=== PATIENT | female | born 1930 | race Caucasian/White ===

== ENCOUNTER 2019-12-31 22:36 | Inpatient (IN) | payer MEDICARE, OTHER ==
[2019-12-31 22:55] VITALS: BMI 25.8
[2019-12-31] MEDS ORDERED: Morphine 4 MG/ML VIAL SLOW IVP PRN (23:16)
[2019-12-31] MEDS ORDERED: hydrALAZINE 20 MG/ML VIAL SLOW IVP PRN (23:16)
[2019-12-31] MEDS ORDERED: Ondansetron ODT 4 MG TAB PO PRN (23:16)
[2019-12-31] MEDS ORDERED: Dextrose 50% Abboject 50 ML SYRINGE SLOW IVP PRN (23:16)
[2019-12-31] MEDS ORDERED: Morphine 2 MG/ML SYRINGE SLOW IVP PRN (23:16)
[2019-12-31] MEDS ORDERED: Ondansetron PF 4 MG/2 ML Vial IVP PRN (23:16)
[2019-12-31] MEDS ORDERED: Dextrose 5% in Water 1,000 ML IV PRN (23:16)
[2019-12-31] MEDS ORDERED: Acetaminophen 500 MG TAB PO SCH (23:59)
[2020-01-01] MEDS: Cyclobenzaprine 10 MG TAB PO PRN (00:05)
[2020-01-01] MEDS: Acetaminophen 325 MG TAB PO SCH ×4 (00:34→17:07)
--- NOTE | 2020-01-01 00:43 | HP ---
ATTENDING SURGEON: Dr. Salazar. CONSULTATIONS: Orthopedics, Dr. Rosales. HISTORY OF PRESENT ILLNESS: The patient is an 89-year-old woman, who was brought here from [facility] after suffering a ground level fall when she sustained a right hip fracture. Due to her advanced age and comorbidity, the orthopedic surgeon there felt that the patient would be best served by transferring to higher level. Dr. Salazar was contacted and agreed to the transfer. The patient was brought to our facility. The patient denied any loss of consciousness or syncopal episodes. She just reports missing a step and falling onto her right hip. ALLERGIES: PENICILLIN. CURRENT MEDICATIONS: Lisinopril. PAST MEDICAL HISTORY: Hypertension. PAST SURGICAL HISTORY: Breast lumpectomy x2. SOCIAL HISTORY: The patient denies drug, tobacco, or alcohol use. The patient lives in the [place] area. Of note, the patient had just attended her 's this day. REVIEW OF SYSTEMS: A 10-point review of systems is negative as otherwise stated. PHYSICAL EXAMINATION: VITAL SIGNS: Blood pressure 150/75, heart rate 78, respirations 20, oxygen saturation 95% on room air, and temperature is 98.6. GENERAL: The patient is resting comfortably in bed. She is awake, alert, conversant, and appropriate. [place] Coma Scale is 15. HEENT: Head is normocephalic and atraumatic. Eyes, extraocular motion intact. PERRLA bilaterally. Ears are atraumatic without discharge. Nose is atraumatic without discharge. Oropharynx is clear. NECK: Nontender. Trachea is midline. No JVD. CHEST: Clear to auscultation with good inspiratory and expiratory effort. HEART: Regular rate and rhythm. ABDOMEN: Soft, flat, and nontender with active bowel sounds. Pelvis is stable with tenderness to palpation to the right hip consistent with her fracture. EXTREMITIES: Neurovascularly intact x4. BACK: Atraumatic and nontender. LABORATORY FINDINGS: White blood cell count 8.4, hemoglobin 13.2, hematocrit 39.1, and platelets 235. Sodium 139, potassium 3.4, chloride 101, CO2 of 31, BUN 31, creatinine 1.21, and glucose 110. LFTs are unremarkable. Urinalysis positive bacteria and WBC's. RADIOGRAPHIC FINDINGS: Views of the right femur show comminuted right intertrochanteric hip fracture with minimal displacement. Views of the right hip again show a comminuted minimally displaced right intertrochanteric hip fracture. ASSESSMENT AND PLAN: 1. Status post ground level fall. 2. Right intertrochanteric hip fracture. 3. Acute pain secondary to above. 4. History of hypertension. 5. Urinary tract infection, present on admission. Plan will be to admit the patient to the surgical floor. She was a direct admission. We will do pulmonary toilet, gastritis, and mechanical VTE prophylaxis; make her n.p.o. after midnight; pain control; and postoperatively, begin physical and occupational therapy and discuss placement at that time. Patient was started on Macrobid for her urinary tract infection. Dr. Rosales was made aware of this patient at the time of transfer. Job ID: [id number] [facility]
[2020-01-01 00:45] LABS: Bacteria/HPF 1+ HPF (None Seen); Bilirubin Negative (Negative); Blood, Urine 3+ (Negative); Clarity Turbid (Clear); Glucose, Urine (Dipstick) Normal (Negative); Leukocyte 500 Leu/uL (Negative); Nitrite Negative (Negative); Protein, Urine (Dipstick) Negative (Neg-Trace); RBC/HPF Greater than 50 HPF (0-3); Squamous Epithelial 0-3 HPF (0-3); Urobilinogen Normal mg/dL (Less than 2); WBC/HPF Greater than 50 HPF (0-3)
[2020-01-01 00:46] LABS: Urine Culture Reflex Yes Yes
[2020-01-01] MEDS ORDERED: Nitrofurantoin Monohyd/M-Cryst 100 MG CAP PO SCH (01:00)
[2020-01-01] MEDS: Sodium Chloride 0.9% 1,000 ML IV SCH ×2 (05:05→08:16)
[2020-01-01] MEDS: Ibuprofen 800 MG TAB PO SCH ×3 (05:06→21:00)
[2020-01-01 05:18] LABS: #Eosinphils 0.1 thou/uL (0.0-0.7); #Lymphocytes 1.2 thou/uL (1.20-3.40); #Monocytes 0.7 thou/uL (0.11-0.59); #Neutrophils 4.7 thou/uL (1.40-6.50); %Basophils 0.4 % (0.0-1.0); %Eosinophils 1.3 % (0.0-10.0); %Lymphocytes 17.5 % (21.0-51.0); %Monocytes 10.2 % (0.0-10.0); %Neutrophils 70.6 % (42.0-75.0); Hemoglobin 11.9 g/dL (12.0-16.0); Mean Corpuscular HGB CONC 32.8 g/dL (32.0-36.0); Mean Corpuscular Hemoglobin 29.9 pg (27.0-31.0); Mean Corpuscular Volume 91.1 fL (78.0-98.0); Mean Platelet Volume 7.3 fL (7.4-10.4); Platelet Count 177 thou/uL (130-400); RBC Distribution Width 11.7 % (11.5-14.5); Red Blood Cell (RBC) Count 3.98 mill/uL (4.20-5.40); White Blood Cell (WBC) Count 6.7 thou/uL (4.8-10.8)
[2020-01-01 05:19] LABS: PTT 30.2 SEC (22.9-36.1); Prothrombin Time 13.6 sec (12.0-14.7)
[2020-01-01 05:33] LABS: Anion Gap 14 mmol/L (10-20); BUN (Urea Nitrogen) 27 mg/dL (9.8-20.1); Calc. Creatinine Clearance 47 mL/min (70-130); Calcium 8.6 mg/dL (7.8-10.44); Carbon Dioxide 25 mmol/L (23-31); Chloride 102 mmol/L (98-107); Estimated GFR-MDRD 54; Glucose 108 mg/dL (83-110); Magnesium 1.7 mg/dL (1.6-2.6); Phosphorus 3.7 mg/dL (2.3-4.7); Potassium 3.3 mmol/L (3.5-5.1); Sodium 138 mmol/L (136-145)
[2020-01-01] MEDS ORDERED: Magnesium Sulfate 3 GM in Sodium Chloride 0.9% 250 ML 250 ML IVPB SCH (06:00)
[2020-01-01] MEDS ORDERED: Potassium Phosphate 30 MMOL in Sodium Chloride 0.9% 250 ML 250 ML IVPB SCH (06:00)
--- NOTE | 2020-01-01 07:36 | RAD ---
RIGHT HIP 2 VIEWS: HISTORY: Fall. Right hip fracture. FINDINGS/IMPRESSION: There is a mildly displaced intratrochanteric fracture involving the right proximal femur. POS: GIANCARLOA
[2020-01-01] MEDS: Nitrofurantoin Monohyd/M-Cryst 100 MG CAP PO SCH ×2 (08:16→21:00)
[2020-01-01] MEDS: Lisinopril/Hydrochlorothiazide 20/25 mg Tablet PO SCH (08:17)
--- NOTE | 2020-01-01 08:41 | CON ---
DATE OF CONSULTATION: 01/01/2020 REQUESTING PHYSICIAN: Dio Salazar MD CONSULTING PHYSICIAN: Conner Caballero MD REASON FOR CONSULTATION: Right hip intertrochanteric fracture. BRIEF CLINICAL HISTORY: Shobha is an 89-year-old female, who was admitted by the Trauma Team after transferring from [facility]. Apparently, she suffered a ground level fall at home yesterday evening, but she remembers the events before, during, and after. She had essentially lost her balance in her driveway, and lives independently otherwise with her now . She attended his this same day, yesterday, unfortunately. Plain radiographs obtained demonstrated three part intertrochanteric right hip fracture. PAST MEDICAL HISTORY: Hypertension. PAST SURGICAL HISTORY: Lumpectomy x2. MEDICATIONS: Lisinopril. ALLERGIES: PENICILLIN. DENIES ANY CONTACT ALLERGIES. SOCIAL HISTORY: She is a . She denies any ethanol, tobacco, illicit drug abuse. [place] REVIEW OF SYSTEMS: She denies any fever, chills, nausea, vomiting, chest pain, dyspnea on exertion, shortness of breath, swelling of extremities. She is in her active state of health, which is quite vigorous and independent living, and she took care of her for many years, and otherwise has no significant comorbidities. PHYSICAL EXAMINATION: VITAL SIGNS: Temperature 98.7, pulse 79, respiratory rate 16, O2 saturation on room air 95%, blood pressure 150/75. GENERAL: She is alert and oriented to person, place, time, and situation. Responsive and appropriate with examiner. Grossly nonfocal and very intelligent and conversive. EXTREMITIES: Visual inspection of the right lower extremity demonstrates shortening and external rotation of the right lower extremity relative to the left. She is neurovascularly intact and pain is elicited with just palpation along the inguinal ligament and inferior to this along the lower extremity. Range of motion is not assessed due to known underlying fracture. LABORATORY DATA: Hemoglobin 11.9, hematocrit 36.3, white blood cell count 6.7. BUN 27, creatinine 0.97. Otherwise, other chemistry within normal limits. IMAGING STUDIES: Three-part right hip fracture noted on the AP and lateral of the right hip. IMPRESSION: 1. Displaced varus angulated right hip three-part intertrochanteric fracture with shortening. 2. Hypertension. PLAN: The risks, benefits, options, alternatives, and rationale for proceeding with the right hip short trochanteric nail fixation has been explained in great detail. The patient is ready to proceed. All questions were answered. No guarantee of outcome stated or implied. Please see orders. Job ID: [id number]
[2020-01-01] MEDS ORDERED: Famotidine 20 MG TAB PO SCH (09:00)
[2020-01-01] MEDS ORDERED: Clindamycin/D5W 900 MG in Premix Bag 1 BAG IVPB SCH (10:00)
[2020-01-01] MEDS ORDERED: Lidocaine 1% PF 5 ML VIAL ONE (12:05)
[2020-01-01] MEDS ORDERED: Ondansetron PF 4 MG/2 ML Vial ONE (12:05)
[2020-01-01] MEDS ORDERED: Dexamethasone 20 MG/5 ML VIAL ONE (12:05)
[2020-01-01] MEDS ORDERED: Rocuronium Bromide 10 MG/ML (10ML VIAL) ONE (12:05)
[2020-01-01] MEDS ORDERED: Glycopyrrolate 0.2 MG/ML 5 ML SYRINGE ONE (12:05)
[2020-01-01] MEDS ORDERED: PROPOFOL 200 MG/20 ML VIAL ONE (12:05)
[2020-01-01] MEDS ORDERED: Clindamycin/D5W 900 mg/50 ml Premix Bag ONE (13:07)
--- NOTE | 2020-01-01 13:10 | CON ---
DATE OF CONSULTATION: 01/01/2020 HISTORY OF PRESENT ILLNESS: Ms. Lomeli is a pleasant 89-year-old female, her recently . At the , the patient had a ground level fall sustaining a fracture of the right hip. She has been admitted by Trauma, seen by my PA, Trevor Waldron, see all for further history. The patient otherwise resting comfortably in bed. PHYSICAL EXAMINATION: VITAL SIGNS: Stable. GENERAL: No acute distress. EXTREMITIES: Right lower extremity externally rotated. Neurovascularly intact. DIAGNOSTIC DATA: Radiographs show an intertrochanteric hip fracture, right. IMPRESSION: Right intertrochanteric hip fracture. ASSESSMENT AND PLAN: I discussed with the patient that she would need cephalomedullary nailing of her right hip. I discussed the risks and benefits of surgery, pain, scar, bleeding, infection, damage to vital structures, decreased range of motion, mortality of 38%, risk of blood clot, and need for about 12 weeks to heal. I discussed she would likely have a little bit of a limp postoperatively. The patient understood these risks and benefits, taken back to the operative suite today for surgery. Job ID: [id number] [facility]
[2020-01-01] MEDS ORDERED: Fentanyl 100 MCG/2 ML VIAL ONE (13:14)
[2020-01-01] MEDS ORDERED: Ondansetron HCl/PF 4 MG/2 ML Vial IVP PRN (15:33)
[2020-01-01] MEDS ORDERED: Promethazine HCl 25 MG/ML VIAL SLOW IVP PRN (15:33)
[2020-01-01] MEDS ORDERED: Promethazine HCl 25 MG/ML VIAL IM PRN (15:33)
--- NOTE | 2020-01-01 15:33 | RAD ---
Radiograph right hip 2 views: DATE: 01/01/2020 2:05 PM HISTORY: 89-year-old female status post acute traumatic fracture of intertrochanteric portion of right proxima l femur. COMPARISON: 01/01/2020 4:55 AM FINDINGS: 3 fluoroscopic spot images obtained with C-arm in the OR. The intertrochanteric fracture has been red uced. Alignment and angulation is anatomical. Santiago's type dynamic compression screw has been placed. Satisfactory position of hardware. IMPRESSION: Interval reduction and fixation of acute, traumatic, displaced intertrochanteric right proximal femor al fracture with Santiago's type dynamic compression screw.
--- NOTE | 2020-01-01 16:45 | PRG ---
DATE OF SERVICE: 01/01/2020 SUBJECTIVE: Ms. Lomeli is an 89-year-old female, status post ground level fall. She sustained right hip fracture. The patient was admitted for pain control. The patient will be going to the operation room today with Dr. Rosales for right hip fracture fixation. The patient reports pain is well controlled. She tolerated her regular diet yesterday. She has been put on n.p.o. at midnight. Vital sign is stable. The patient urine is adequate. OBJECTIVE: GENERAL: Currently patient lying in bed comfortable with no acute respiratory distress. VITAL SIGNS: Temperature 98.2, heart rate 66, respiratory rate 16, O2 saturation 94% on room air, blood pressure 100/55. LUNGS: Clear bilaterally. HEART: Regular rate and rhythm. ABDOMEN: Soft, nondistended. EXTREMITIES: Neurovascularly intact x4. NEUROLOGIC: No focal neurologic deficits. ASSESSMENT: 1. Status post ground level fall. 2. Right intertrochanteric femur fracture. 3. Urinary tract infection on admission. 4. History of hypertension. PLAN: The patient will go to the OR today. Continue supportive care. Continue pain control. Continue pulmonary toilet, gastritis prophylaxis. Postop, the patient will need physical therapy and occupational therapy. Anticipate placement in rehabilitation facility. The patient was seen with Dr. Torres on round this morning. Job ID: [id number]
[2020-01-01] MEDS: Clindamycin/D5W 900 MG in Premix Bag 1 BAG IVPB SCH (21:01)
[2020-01-02] MEDS: Acetaminophen 325 MG TAB PO SCH ×5 (00:37→23:41)
--- NOTE | 2020-01-02 03:29 | PRG ---
DATE OF SERVICE: 01/02/2020 SUBJECTIVE: The patient remains on the surgical floor, she is hospital day 2, postoperative day 0, status post ground level fall when she sustained a right intertrochanteric hip fracture. Today, she underwent ORIF of the same, which she tolerated well. Since returning to the surgical floor, she has not worked with therapy yet today. She is tolerating a diet. She confirms that her pain is controlled. PHYSICAL EXAMINATION: VITAL SIGNS: Stable. The patient is afebrile. GENERAL: The patient is resting comfortably in bed. She is awake, alert, conversant, and appropriate. HEENT: Unremarkable. LUNGS: Clear to auscultation bilaterally with good inspiratory and expiratory effort. HEART: Regular rate and rhythm. ABDOMEN: Soft, nontender, with hypoactive bowel sounds. EXTREMITIES: Neurovascularly intact x4. Postop dressing is clean, dry, and intact. ASSESSMENT: 1. Status post ground level fall. 2. Status post open reduction and internal fixation of right intertrochanteric hip fracture. 3. History of hypertension. 4. Urinary tract infection, present on admission, currently under treatment and awaiting microbiology results. PLAN: Plan will be to continue supportive care. Encourage physical and occupational therapy and discuss placement. Job ID: [id number]
[2020-01-02] MEDS: Clindamycin/D5W 900 MG in Premix Bag 1 BAG IVPB SCH (05:36)
[2020-01-02] MEDS: Ibuprofen 800 MG TAB PO SCH ×3 (05:36→22:16)
[2020-01-02] MEDS: Nitrofurantoin Monohyd/M-Cryst 100 MG CAP PO SCH ×2 (08:06→20:20)
[2020-01-02] MEDS: Lisinopril/Hydrochlorothiazide 20/25 mg Tablet PO SCH (08:06)
[2020-01-02] MEDS: Famotidine 20 MG TAB PO SCH (08:06)
[2020-01-02 08:19] LABS: #Lymphocytes 0.5 thou/uL (1.20-3.40); #Monocytes 0.7 thou/uL (0.11-0.59); #Neutrophils 6.8 thou/uL (1.40-6.50); %Basophils 0.4 % (0.0-1.0); %Eosinophils 0.3 % (0.0-10.0); %Lymphocytes 6.7 % (21.0-51.0); %Monocytes 8.9 % (0.0-10.0); %Neutrophils 83.7 % (42.0-75.0); Hemoglobin 11.7 g/dL (12.0-16.0); Mean Corpuscular HGB CONC 32.7 g/dL (32.0-36.0); Mean Corpuscular Volume 91.9 fL (78.0-98.0); Mean Platelet Volume 7.3 fL (7.4-10.4); Platelet Count 159 thou/uL (130-400); RBC Distribution Width 11.8 % (11.5-14.5); White Blood Cell (WBC) Count 8.1 thou/uL (4.8-10.8)
[2020-01-02 08:27] LABS: Anion Gap 14 mmol/L (10-20); BUN (Urea Nitrogen) 26 mg/dL (9.8-20.1); Calc. Creatinine Clearance 45 mL/min (70-130); Calcium 8.2 mg/dL (7.8-10.44); Carbon Dioxide 25 mmol/L (23-31); Chloride 102 mmol/L (98-107); Estimated GFR-MDRD 52; Glucose 114 mg/dL (83-110); Magnesium 2.1 mg/dL (1.6-2.6); Phosphorus 4.1 mg/dL (2.3-4.7); Potassium 4.2 mmol/L (3.5-5.1); Sodium 137 mmol/L (136-145)
[2020-01-02] MEDS: traMADol HCl 50 MG TAB PO PRN (13:18)
--- NOTE | 2020-01-02 15:53 | PRG ---
DATE OF SERVICE: 01/02/2020 SUBJECTIVE: Ms. Lomeli is an 89-year-old female, status post ground level fall. She sustained right hip fracture. She underwent ORIF of right hip fracture with Dr. Rosales yesterday. The patient tolerated the procedure well. She tolerated with her regular diet. Her vital signs stayed stable. Her urine is adequate. She developed no fever or shortness of breath. Her spirometry is 1500. OBJECTIVE: GENERAL: Currently, the patient is lying in bed, comfortable, with no acute respiratory distress. VITAL SIGNS: Temperature 98.8, heart rate 74, respiratory rate 16, O2 saturation 98% on room air, and blood pressure 123/63. LUNGS: Clear bilaterally. HEART: Regular rate and rhythm. ABDOMEN: Soft, nondistended. EXTREMITIES: Neurovascularly intact x4. Postop dressing clean, dry, intact. NEUROLOGIC: No focal neurology deficits. ASSESSMENT: 1. Status post ground level fall. 2. Right hip fracture, status post fixation. 3. Urinary tract infection on admission, resolved. 4. History of hypertension, stable. PLAN: Continue supportive care. Continue pain control. The patient will be working with Physical Therapy and Occupational Therapy today. Initiate pharmacological DVT prophylaxis today. Anticipate placement in rehabilitation facility in the next 24 to 48 hours. Job ID: [id number]
[2020-01-02] MEDS: Cyclobenzaprine 10 MG TAB PO PRN (16:59)
[2020-01-02] MEDS: Enoxaparin Sodium 40 MG/0.4 ML SYRINGE SC SCH (20:19)
--- NOTE | 2020-01-03 01:22 | PRG ---
DATE OF SERVICE: 01/03/2020 SUBJECTIVE: The patient is hospital day #3, postop day 1, status post ground level fall when she sustained a right intertrochanteric hip fracture. Yesterday, she underwent ORIF of the same, which she tolerated well. Today, she was able to work with Physical and Occupational Therapy twice and did well. She is tolerating a diet. Reports her pain is controlled. PHYSICAL EXAMINATION: VITAL SIGNS: Stable. The patient is afebrile. GENERAL: The patient is resting comfortably in bed. She is awake, alert, conversant, appropriate. [place] Coma Scale is 15. LUNGS: Clear to auscultation bilaterally with good inspiratory and expiratory effort. HEART: Regular rate and rhythm. ABDOMEN: Soft, flat, nontender with active bowel sounds. EXTREMITIES: Neurovascularly intact x4. ASSESSMENT/PLAN: 1. Status post ground level fall. 2. Status post open reduction and internal fixation of right intertrochanteric hip fracture, postoperative day 1. 3. History of hypertension. 4. Urinary tract infection, present on admission, currently under treatment. Awaiting microbiology results. PLAN: Plan will be to continue encouraging physical and occupational therapy, supportive care and await placement decision. Job ID: [id number]
[2020-01-03] MEDS: Acetaminophen 325 MG TAB PO SCH ×3 (05:13→18:18)
[2020-01-03] MEDS: Ibuprofen 800 MG TAB PO SCH ×2 (05:13→14:57)
[2020-01-03 05:33] LABS: #Eosinphils 0.2 thou/uL (0.0-0.7); #Lymphocytes 1.1 thou/uL (1.20-3.40); #Monocytes 0.6 thou/uL (0.11-0.59); #Neutrophils 4.6 thou/uL (1.40-6.50); %Basophils 0.6 % (0.0-1.0); %Lymphocytes 16.3 % (21.0-51.0); %Monocytes 8.8 % (0.0-10.0); %Neutrophils 71.3 % (42.0-75.0); Hemoglobin 11.5 g/dL (12.0-16.0); Mean Corpuscular Hemoglobin 30.5 pg (27.0-31.0); Mean Corpuscular Volume 92.4 fL (78.0-98.0); Mean Platelet Volume 7.8 fL (7.4-10.4); Platelet Count 172 thou/uL (130-400); Red Blood Cell (RBC) Count 3.76 mill/uL (4.20-5.40); White Blood Cell (WBC) Count 6.5 thou/uL (4.8-10.8)
[2020-01-03 05:56] LABS: Anion Gap 13 mmol/L (10-20); BUN (Urea Nitrogen) 34 mg/dL (9.8-20.1); Calc. Creatinine Clearance 38 mL/min (70-130); Calcium 8.1 mg/dL (7.8-10.44); Carbon Dioxide 26 mmol/L (23-31); Chloride 100 mmol/L (98-107); Estimated GFR-MDRD 43; Glucose 106 mg/dL (83-110); Phosphorus 3.3 mg/dL (2.3-4.7); Potassium 3.5 mmol/L (3.5-5.1); Sodium 135 mmol/L (136-145)
[2020-01-03] MEDS ORDERED: Sodium Chloride 0.9% 500 ML IV SCH (06:45)
--- NOTE | 2020-01-03 07:13 | OP ---
DATE OF PROCEDURE: 01/01/2020 PREOPERATIVE DIAGNOSIS: Right intertrochanteric hip fracture. POSTOPERATIVE DIAGNOSIS: Right intertrochanteric hip fracture. PROCEDURE PERFORMED: Right short cephalomedullary nail intertrochanteric hip fracture. NAIL SPECIALIST: Michel Waldron PA-C ANESTHESIOLOGIST: Dr. Fletcher. ANESTHESIA: The patient received a general endotracheal intubation. ESTIMATED BLOOD LOSS: 100 mL. TOURNIQUET TIME: None. IMPLANTS: Synthes 10 mm x 170 mm TFNA, 95 mm TFNA compression screw and a 5 mm x 32 distal locking screw. ANTIBIOTICS: Clindamycin 900. COMPLICATIONS: None. INDICATIONS FOR PROCEDURE: Ms. Lomeli is an 89-year-old female, status post fall. She just buried her . On the day of the , she fell, was transferred here for higher level of care from [facility]. The patient was noted to have right intertrochanteric hip fracture. I discussed with the patient risks and benefits of right intertrochanteric hip fracture to include pain, scar, bleeding, infection, damage to vital structures, decreased range of motion and strength, continued pain despite surgical intervention, blood loss, loss of life or limb, nonunion, malunion, need for revision. The patient understood the risks and benefits of the procedure and would like to proceed. DESCRIPTION OF PROCEDURE: Time-out was performed designating the patient's right lower extremity as the operative site based on site, consents, and marking. The patient had been placed in a traction table, reduced in perfect position for the right hip. After x-rays were taken and good reduction, she received perioperative antibiotics and timeout was performed, we made a lateral incision just above the greater trochanter down through skin, through the IT band. We dissected bluntly down to the hip. I placed a guide pin, which I spun into position and placed a first pin. I moved it 4 mm more anterior to ensure that it was center-center and drilled down and we were happy on AP and lateral radiographs. We used our opening reamer, passed a 10 mm nail, looked under fluoroscopic guidance to ensure position, and took 3 passes to get center-center position where I wanted to within the head on AP and lateral radiographs. Being happy with center-center position of my head, the bone was well reduced. We over-drilled and placed a 95 mm screw. We did not need to compress the patient's neck and reduction was good with some comminution. I took the gate down, in the nail, until it was tight and backed off half a turn to allow it to compress. We took off the triple trocars, pulled the incision distally and placed our distal locking screw. Drilling bicortically, we placed a 13 mm screw. We washed and closed with 0, 2-0, and skin gabi. The patient will be weightbearing as tolerated. Followed inhouse by Trauma. She will receive 24 hours of perioperative antibiotics, will be started on DVT prophylaxis. Job ID: [id number]
[2020-01-03] MEDS ORDERED: Potassium Phosphate 15 MMOL in Sodium Chloride 0.9% 250 ML 250 ML IVPB SCH (08:30)
[2020-01-03] MEDS: Lisinopril/Hydrochlorothiazide 20/25 mg Tablet PO SCH (09:37)
[2020-01-03] MEDS: Nitrofurantoin Monohyd/M-Cryst 100 MG CAP PO SCH ×2 (09:37→21:05)
[2020-01-03] MEDS: Famotidine 20 MG TAB PO SCH (09:37)
[2020-01-03] MEDS: traMADol HCl 50 MG TAB PO PRN (12:48)
[2020-01-03] MEDS ORDERED: Sodium Chloride 0.9% 1,000 ML IV SCH (17:45)
--- NOTE | 2020-01-03 19:29 | PRG ---
DATE OF SERVICE: 01/03/2020 SUBJECTIVE: Ms. Lomeli is an 89-year-old female, status post ground-level fall. She sustained right hip fracture. She underwent a right hip fracture fixation, postop day 2. The patient reports pain is well controlled. Her urine is adequate. Her vital signs have been stable. She does not yet have bowel and the patient had lactulose this morning. OBJECTIVE: GENERAL: Currently, the patient is lying down in bed comfortable with no acute respiratory distress. VITAL SIGNS: Temperature 97.8, heart rate 73, respiratory rate 16, O2 sat 97% on room air, and blood pressure 130/75. LUNGS: Clear bilaterally. HEART: Regular rate and rhythm. ABDOMINAL: Soft and nondistended. EXTREMITIES: Neurovascularly intact x4. NEUROLOGIC: No focal neurologic deficits. ASSESSMENT: 1. Status post ground-level fall. 2. Right hip fracture, status post fixation. 3. Urinary tract infection, resolved. 4. History of hypertension, stable. PLAN: Continue supportive care. Continue pain control. Continue working Physical Therapy and Occupational Therapy. Continue DVT prophylaxis. Anticipate placement in rehabilitation facility in the next 24 to 48 hours. Job ID: [id number]
[2020-01-03] MEDS: Senokot S 8.6-50 MG TAB PO SCH (21:05)
[2020-01-03] MEDS: Enoxaparin Sodium 40 MG/0.4 ML SYRINGE SC SCH (21:05)
[2020-01-04] MEDS: Acetaminophen 325 MG TAB PO SCH ×5 (00:45→17:27)
--- NOTE | 2020-01-04 00:59 | PRG ---
DATE OF SERVICE: 01/04/2020 SUBJECTIVE: The patient is currently on the surgical floor. She is hospital day 4, postop day 2, status post ground level fall when she sustained a right intertrochanteric hip fracture. The patient underwent ORIF of her fracture and she tolerated the procedure well and has been progressing with physical and occupational therapy. She is tolerating a diet. Her pain is controlled. This morning's labs noted that she had a slight elevation in her creatinine. She was given a bolus of normal saline and she has been making adequate urine throughout the day. She has not had a bowel movement yet. PHYSICAL EXAMINATION: VITAL SIGNS: Stable. The patient is afebrile. GENERAL: The patient is resting comfortably in bed. She is awake, alert, conversant, and appropriate. LUNGS: Clear to auscultation bilaterally. HEART: Regular rate and rhythm. ABDOMEN: Soft, flat, nontender with active bowel sounds. EXTREMITIES: Neurovascularly intact x4. ASSESSMENT: 1. Status post ground level fall, hospital day . 2. Status post open reduction and internal fixation of right intertrochanteric hip fracture, postop day 2. 3. History of hypertension. 4. Urinary tract infection, present on admission, currently under treatment. PLAN: Will be to continue supportive care, physical and occupational therapy, and await placement decision. Job ID: [id number]
[2020-01-04 05:32] LABS: Anion Gap 11 mmol/L (10-20); BUN (Urea Nitrogen) 22 mg/dL (9.8-20.1); Calc. Creatinine Clearance 43 mL/min (70-130); Calcium 8.3 mg/dL (7.8-10.44); Carbon Dioxide 26 mmol/L (23-31); Chloride 103 mmol/L (98-107); Estimated GFR-MDRD 49; Glucose 93 mg/dL (83-110); Magnesium 1.9 mg/dL (1.6-2.6); Sodium 136 mmol/L (136-145)
[2020-01-04] MEDS ORDERED: Magnesium 2 GM/50 ML 2 GM in Premix Bag 1 BAG IVPB SCH ×2 (06:00→12:00)
[2020-01-04] MEDS ORDERED: Bisacodyl 10 MG SUPP PR SCH (07:30)
[2020-01-04] MEDS: Senokot S 8.6-50 MG TAB PO SCH ×2 (08:54→21:46)
[2020-01-04] MEDS: Lisinopril/Hydrochlorothiazide 20/25 mg Tablet PO SCH (08:54)
[2020-01-04] MEDS: Nitrofurantoin Monohyd/M-Cryst 100 MG CAP PO SCH ×2 (08:54→21:46)
[2020-01-04] MEDS: Polyethylene Glycol 3350 17 GM Packet PO SCH (08:55)
[2020-01-04] MEDS: traMADol HCl 50 MG TAB PO PRN (08:55)
[2020-01-04] MEDS: Famotidine 20 MG TAB PO SCH (08:55)
[2020-01-04] MEDS ORDERED: Ibuprofen 600 MG TAB PO PRN (09:09)
[2020-01-04] MEDS ORDERED: Ibuprofen 200 MG TAB PO PRN (09:19)
--- NOTE | 2020-01-04 17:33 | PRG ---
DATE OF SERVICE: 01/04/2020 SUBJECTIVE: Ms. Lomeli remained in surgical floor. She was seen on round this morning. The patient is status post ground level fall with right hip fracture, status post repair. The patient reports pain is well controlled. Her urine is adequate. She tolerated regular diet. She reports does not have bowel yet. OBJECTIVE: GENERAL: Currently, the patient is lying in bed, comfortable, with no acute respiratory distress. VITAL SIGNS: Temperature 98.9, heart rate 70, respiratory rate 12, O2 saturation 95% on room air, blood pressure 145/66. LUNGS: Clear bilaterally. HEART: Regular rate and rhythm. ABDOMEN: Soft, nondistended. EXTREMITIES: Neurovascularly intact x4. NEUROLOGIC: No focal neurologic deficits. ASSESSMENT: 1. Status post ground level fall. 2. Right hip fracture, status post fixation. 3. Urinary tract infection on admission, resolved. 4. History of hypertension, stable. PLAN: Continue supportive care. Continue pain control. Continue working with Physical Therapy and Occupational Therapy. Continue DVT prophylaxis. Placement is pending. Await for insurance authorization. The patient was seen with Dr. Torres on round this morning. Job ID: [id number]
[2020-01-04] MEDS: traMADol HCl 50 MG TAB PO SCH (21:46)
[2020-01-04] MEDS: Enoxaparin Sodium 40 MG/0.4 ML SYRINGE SC SCH (21:46)
[2020-01-05] MEDS: Acetaminophen 325 MG TAB PO SCH ×5 (02:05→23:11)
--- NOTE | 2020-01-05 04:47 | PRG ---
DATE OF SERVICE: 01/05/2020 SUBJECTIVE: The patient is currently on the surgical floor. She is status post ground level fall when she sustained a right intertrochanteric hip fracture. She has undergone operative intervention for this. She tolerated the procedure well and she has begun working with Physical and Occupational Therapy. She is currently awaiting placement with choice letter sent to [facility] in [place]. Nurses do not report any issues. She is tolerating a diet. Her pain is controlled. OBJECTIVE: VITAL SIGNS: Stable. The patient is afebrile. GENERAL: The patient is resting comfortably in bed. She was asleep at the time of my visit, but did not awaken her for an exam. She appears to be comfortable. LUNGS: Her respirations appear nonlabored. ASSESSMENT AND PLAN: 1. Status post ground level fall. 2. Status post open reduction and internal fixation of right intertrochanteric hip fracture. 3. History of hypertension. 4. Urinary tract infection, present on admission, currently under treatment. 5. Acute kidney injury, resolved. Plan will be to continue supportive care. Encourage physical and occupational therapy and await final placement decision. Job ID: [id number]
--- NOTE | 2020-01-05 09:24 | PRG ---
DATE OF SERVICE: 01/05/2020 SUBJECTIVE: Shobha is an 89-year-old female, postoperative day 4 from a right hip intertrochanteric fracture treated with short trochanteric nail fixation. She has no complaints this morning. She is improving. She is ambulating approximately between 35 and 48 feet. She is feeling much better at this point. OBJECTIVE: VITAL SIGNS: Temperature 98.6, pulse 78, respiratory rate 16, blood pressure 144/67. GENERAL: She is alert, oriented to person, place, time, and situation, responsive and appropriate with examiner, sitting up eating breakfast comfortably. EXTREMITIES: Her incision is clean. No erythema. No strikethrough. No shortening or malrotation of the involved extremity. LABORATORY DATA: Hemoglobin and hematocrit 11.5 and 34.8 from 2 days ago. IMPRESSION: An 89-year-old female, postoperative day 4 right hip intertrochanteric fracture, status post short trochanteric nail fixation, doing well. PLAN: Continue current care. Transfer when facilities able to accept. Job ID: [id number]
[2020-01-05] MEDS: traMADol HCl 50 MG TAB PO SCH ×2 (09:56→20:20)
[2020-01-05] MEDS: Nitrofurantoin Monohyd/M-Cryst 100 MG CAP PO SCH (09:56)
[2020-01-05] MEDS: Famotidine 20 MG TAB PO SCH (09:56)
[2020-01-05] MEDS: Lisinopril/Hydrochlorothiazide 20/25 mg Tablet PO SCH (09:56)
[2020-01-05] MEDS: Polyethylene Glycol 3350 17 GM Packet PO SCH (09:58)
[2020-01-05] MEDS: Senokot S 8.6-50 MG TAB PO SCH ×2 (09:58→20:20)
--- NOTE | 2020-01-05 15:14 | PRG ---
DATE OF SERVICE: 01/05/2020 SUBJECTIVE: Ms. Lomeli is an 89-year-old woman, who is postoperative day #4, status post cephalomedullary nail to intertrochanteric hip fracture. The patient is awake and alert today. She reports adequate pain control. She participates well with physical therapy today, ambulating 500 feet. She is tolerating a general diet, having normal bowel and urinary function. OBJECTIVE: VITAL SIGNS: Today include blood pressure 126/60, pulse is 84, respiratory rate is 16, temperature is 99 degrees Fahrenheit, oxygen saturation 97% on room air. HEART: Reveals regular rate and rhythm. LUNGS: Clear to auscultation bilaterally. Breathing, regular and nonlabored. NEUROLOGIC: Reveals no focal deficits present. IMPRESSION: Postop day #4, status post cephalomedullary nail to a right intertrochanteric hip fracture. PLAN: The patient is hemodynamically stable, pending transfer to inpatient rehabilitation upon bed availability and insurance authorization. Meanwhile, we will initiate chemical VTE prophylaxis. Job ID: [id number]
[2020-01-05] MEDS: Enoxaparin Sodium 40 MG/0.4 ML SYRINGE SC SCH (20:20)
--- NOTE | 2020-01-06 02:15 | PRG ---
DATE OF SERVICE: 01/05/2020 SUBJECTIVE: The patient was seen this evening during rounds. Nursing reported no acute events. OBJECTIVE: VITAL SIGNS: Temperature 98.5, pulse 72, respirations 16, oxygen saturation 95% on room air, and blood pressure 114/67. GENERAL: Well-appearing elderly female, sitting up in bed, asleep with no signs of acute distress. PULMONARY: Equal chest rise and fall. No signs of acute respiratory distress. ASSESSMENT: 1. Status post ground level fall. 2. Right hip fracture, status post repair. 3. Urinary tract infection. 4. History of hypertension. PLAN: Continue current diet and pain regimen. Continue physical and occupational therapy. The patient is pending placement at [facility]. Job ID: [id number]
[2020-01-06] MEDS: Acetaminophen 325 MG TAB PO SCH ×4 (05:12→23:05)
[2020-01-06] MEDS: Aspirin 81 mg Enteric Coated Tablet PO SCH ×2 (09:21→20:15)
[2020-01-06] MEDS: Polyethylene Glycol 3350 17 GM Packet PO SCH (09:21)
[2020-01-06] MEDS: Senokot S 8.6-50 MG TAB PO SCH ×2 (09:21→20:15)
[2020-01-06] MEDS: traMADol HCl 50 MG TAB PO SCH ×2 (09:22→20:16)
[2020-01-06] MEDS: Lisinopril/Hydrochlorothiazide 20/25 mg Tablet PO SCH (09:25)
--- NOTE | 2020-01-06 19:46 | PRG ---
DATE OF SERVICE: 01/06/2020 SUBJECTIVE: The patient was seen on the surgical floor, awake, alert, in no distress, sitting up in chair. The patient is postop day #5, status post repair of her right hip fracture. The patient had no overnight events. The patient reports not being able to do as much as with physical therapy as she did yesterday. Pain only when she is ambulating. OBJECTIVE: VITAL SIGNS: Blood pressure 114/69, temperature 97.9, pulse 81, respirations 14, and SpO2 of 96% on room air. GENERAL: Well-appearing elderly female, awake, alert, in no distress. PULMONARY: Equal chest rise and fall. Respirations are even and nonlabored. CARDIAC: Regular rate, regular rhythm. EXTREMITIES: Neurovascularly intact x4. Right hip dressing is clean, dry, and intact. LABORATORY DATA: There are no new labs to evaluate today. ASSESSMENT: 1. Status post ground level fall. 2. Right hip fracture, status post repair. 3. History of hypertension. PLAN: Continue current diet and pain regimen. Continue to increase physical and occupational therapy. The patient is pending placement to [facility]. The patient was examined by Dr. Torres during morning rounds. Job ID: [id number]
--- NOTE | 2020-01-07 01:03 | PRG ---
DATE OF SERVICE: SUBJECTIVE: The patient was seen this evening during rounds. She was sitting up and asleep with no signs of acute distress. Nursing reported no acute events. OBJECTIVE: VITAL SIGNS: Temperature 98.5, pulse 86, respirations 16, oxygen saturation 93% on room air, blood pressure 113/63. GENERAL: Well-appearing elderly female, sitting up with no signs of acute distress, asleep. PULMONARY: Equal chest rise and fall. Clear breath sounds bilaterally. No signs of acute respiratory distress. ASSESSMENT: 1. Status post ground-level fall. 2. Right hip fracture, status post repair. 3. History of hypertension. PLAN: Continue current diet and pain regimen. Continue Physical and Occupational therapy. Continue supportive care. The patient is pending placement at a alf facility. She is ready for discharge at this time. Job ID: [id number]
[2020-01-07] MEDS: Acetaminophen 325 MG TAB PO SCH ×2 (04:50→11:48)
[2020-01-07] MEDS: traMADol HCl 50 MG TAB PO SCH (08:42)
[2020-01-07] MEDS: Polyethylene Glycol 3350 17 GM Packet PO SCH (08:42)
[2020-01-07] MEDS: Aspirin 81 mg Enteric Coated Tablet PO SCH (08:42)
[2020-01-07] MEDS: Senokot S 8.6-50 MG TAB PO SCH (08:42)
[2020-01-07] MEDS: Lisinopril/Hydrochlorothiazide 20/25 mg Tablet PO SCH (08:43)
[2020-01-07 08:47] VITALS: BP 125/73; TEMP 98.2
== END 2020-01-07 13:00 | DRG 481 ==
LOC: SURG A 22:36
PROVIDERS: ADMIT Surgery; ATTEND Surgery
PROC: 0QS636Z Reposition Right Upper Femur with Intramedullary Internal Fixation Device, Percutaneous Approach (ICD-10-PCS; principal; 2020-01-01)
DX: S72.141A Displaced intertrochanteric fracture of right femur, initial encounter for closed fracture (principal); N39.0 Urinary tract infection, site not specified; N17.9 Acute kidney failure, unspecified; I10 Essential (primary) hypertension; W18.30XA Fall on same level, unspecified, initial encounter; Y92.89 Other specified places as the place of occurrence of the external cause; Z88.0 Allergy status to penicillin; Z79.899 Other long term (current) drug therapy
CPT/HCPCS: 36415; 76000; 80048; 81001; 82533; 83735; 84100; 85025; 85610; 85730; 87086; C1713; J1100; J1650; J2001; J2270; J2405; J2704; J3010; J3475; J3490; J7050